=== PATIENT | female | born 1960 | race Caucasian/White ===

== ENCOUNTER 2017-03-31 12:14 | Day surgery (SDC) | payer BC ==
[2017-03-31] MEDS ORDERED: DEXAMETHASONE SOD PHOSPHATE/PF 10 MG/ML SDV ONE (13:37)
[2017-03-31] MEDS ORDERED: MIDAZOLAM HCL 2 MG/2 ML SINGLE DOSE VIAL ONE (13:37)
[2017-03-31] MEDS ORDERED: ROPIVACAINE HCL 0.5% 30ML VIAL ONE (13:37)
[2017-03-31] MEDS ORDERED: BUPIVACAINE HCL/PF 2.5 MG/ML - 30 ML VIAL IJ ONE (13:53)
[2017-03-31] MEDS ORDERED: PROPOFOL 20 ML ONE (14:40)
[2017-03-31] MEDS ORDERED: ACETAMINOPHEN 325 MG TABLET (FP) PO PRN (16:45)
[2017-03-31] MEDS ORDERED: LACTATED RINGERS SOLUTION 1,000 ML IV SCH (16:45)
[2017-03-31] MEDS ORDERED: oxyCODONE HCL 5 MG TABLET PO PRN ×2 (16:45)
[2017-03-31] MEDS ORDERED: ONDANSETRON 4 MG/2 ML VIAL IVPUSH PRN (16:45)
[2017-03-31 17:19] VITALS: BP 131/74; PULSE 64; TEMP 98
--- NOTE | 2017-04-01 13:59 | OP ---
DATE OF OPERATION: 03/31/2017 PREOPERATIVE DIAGNOSIS: Left comminuted intraarticular displaced distal radius fracture. POSTOPERATIVE DIAGNOSIS: Left comminuted intraarticular displaced distal radius fracture. OPERATIVE PROCEDURE: 1. Open reduction, internal fixation of right comminuted intraarticular displaced distal radius fracture with internal fixation of 3 or more fragments. 2. Left brachioradialis tenotomy. SURGEON: Colleen Reynolds MD KNOWLEDGE ARCHITECT: KLAUS Schmidt ANESTHESIA: Regional. COMPLICATIONS: None. ESTIMATED BLOOD LOSS: Minimal. INDICATION FOR PROCEDURE: The patient is a 56-year-old female with the above finding, indicated for operative treatment. Risks, benefits, alternatives were discussed with the patient at length. Preoperative informed consent was obtained. Of note, prior to the procedure, the patient's splint had been significantly altered and was sitting basically on her hand and not supporting the wrist. She also had significant swelling and ecchymosis of the fingers and hand. The wrist was not that swollen. I had a long discussion with her explaining again the importance of elevation and compliance with splinting in the proper recovery of this injury. She understands that if she does not get the swelling down, she may have wound complications and finger stiffness that could be permanent. She states an understanding, and I have reinforced this to her many times including preoperatively and postoperatively, and right before she left the hospital today. She states an understanding and shows me that she knows how to do this. DESCRIPTION OF PROCEDURE: After preoperative identification of the patient and correct operative site, the patient was brought to the operating room and placed supine on the operating table with all prominences well padded. General anesthesia and sedation were given by the anesthesiologist. The left upper extremity was prepped and draped in the usual sterile fashion. Intravenous antibiotics were given. Timeout procedure was performed. Esmarch bandage was used to exsanguinate the left upper extremity. Tourniquet was inflated to 50 mmHg. Longitudinal incision was made over the volar aspect of the wrist. Incision was made sharply through the skin, with blunt and sharp dissection through subcutaneous tissues. Flexor carpi radialis tendon carpal canal were bluntly and sharply retracted in an ulnarward direction for the remainder of the procedure. elevated off the distal radius. Highly comminuted fracture was then noted, and the pull of the brachioradialis made reduction not possible, therefore a subperiosteal brachioradialis tenotomy was performed. Once the fracture was reduced into a satisfactory position, an Acumed Acu-Loc 2 distal radius plate was placed with proximal nonlocking screws and distal locking screws. The bone quality was very poor, and the central screw in the proximal aspect of the plate needed to be changed for a cancellous screw. For her age, she seemed to have severe osteopenia. However, I was able to get secure fixation of the plate and the locking screws. Radiographs were taken to confirm satisfactory reduction and placement and sizing of all hardware. Scapholunate interval and distal were stressed, and there was no instability. Wound was irrigated with saline and repaired with 4-0 Vicryl and 4-0 Monocryl suture. Steri-Strips, sterile dressing, and a splint were placed. Patient was reversed from general anesthesia and sedation and brought to the recovery room in stable condition. She tolerated the procedure well. Terence Walker, the dental front office assistant, was integral throughout the procedure. The procedure could not have been performed without a skilled operative dental front office assistant. COLLEEN REYNOLDS M.D. [id number]
== END 2017-03-31 19:04 | disposition home or self-care (01) ==
LOC: FASU 12:14
PROVIDERS: ATTEND Orthopaedic Surgery Hand Surgery
PROC: 0LN60ZZ Release Left Lower Arm and Wrist Tendon, Open Approach (ICD-10-PCS; 2017-03-31)
PROC: 0PSJ04Z Reposition Left Radius with Internal Fixation Device, Open Approach (ICD-10-PCS; principal; 2017-03-31 14:34)
DX: S52.532A Colles' fracture of left radius, initial encounter for closed fracture (principal); X58.XXXA Exposure to other specified factors, initial encounter; Y93.9 Activity, unspecified; Y92.9 Unspecified place or not applicable
CPT/HCPCS: 73110-TC-LT; 94760